=== PATIENT | female | born 1945 | race Caucasian/White ===

== ENCOUNTER 2017-01-17 14:43 | Outpatient (CLI) | payer MEDICARE, OTHER ==
[2017-01-17 13:08] LABS: BASOPHILS # (AUTO) 0.1 10^3/uL (0.0-0.1); BASOPHILS % (AUTO) 1.1 %; EOSINOPHILS # (AUTO) 0.2 10^3/uL (0.0-0.7); EOSINOPHILS % (AUTO) 4.1 %; HCT - HEMATOCRIT 41.4 % (37.0-47.0); HGB - HEMOGLOBIN 14.2 g/dL (12.0-16.0); LYMPHOCYTES # (AUTO) 1.4 10^3/uL (1.5-3.5); LYMPHOCYTES % (AUTO) 24.8 %; MEAN CORPUSCULAR HEMOGLOBIN 35.1 pg (27.0-31.0); MEAN CORPUSCULAR HGB CONC 34.3 g/dL (32.0-36.0); MEAN CORPUSCULAR VOLUME 102.2 fL (81.0-99.0); MEAN PLATELET VOLUME 9.7 fL (7.9-10.8); MONOCYTES # (AUTO) 0.8 10^3/uL (0.0-1.0); MONOCYTES % (AUTO) 14.5 %; NEUTROPHILS # (AUTO) 3.2 10^3/uL (1.5-6.6); NEUTROPHILS % (AUTO) 55.5 %; NUCLEATED RED BLOOD CELLS AUTO 0.1 /100WBC; RED BLOOD COUNT 4.05 10^6/uL (4.20-5.40); RED CELL DISTRIBUTION WIDTH 13.4 % (12.0-15.0); UNCORRECTED WHITE BLOOD COUNT 5.7 x10^3/uL; WHITE BLOOD COUNT 5.7 x10^3/uL (4.8-10.8)
[2017-01-17 13:40] LABS: ALBUMIN/GLOBULIN RATIO 1.4 (1.0-2.2); BILIRUBIN,TOTAL 0.5 mg/dL (0.2-1.0); BUN - BLOOD UREA NITROGEN 12 mg/dL (6-20); CARBON DIOXIDE - CO2 27 mmol/L (21-32); CHLORIDE 103 mmol/L (101-111); CHOL/HDL RATIO 2.7 (<4.4); CHOLESTEROL 133 mg/dL; CREATININE 0.7 mg/dL (0.4-1.0); GFR - MDRD 82 (>89); GLUCOSE 99 mg/dL (70-100); HDL CHOLESTEROL 50 mg/dL; LDL/HDL RATIO 1.3 (<4.4); POTASSIUM 3.9 mmol/L (3.5-5.0); SODIUM 135 mmol/L (135-145); TOTAL PROTEIN 7.1 g/dL (6.7-8.2); TRIGLYCERIDES 79 mg/dL; VLDL CHOLESTEROL 16 mg/dL
== END 2017-01-17 14:44 | disposition home or self-care (01) ==
LOC: LAB.WCP 14:43
PROVIDERS: ATTEND Family Medicine
DX: Z79.899 Other long term (current) drug therapy (principal); E78.9 Disorder of lipoprotein metabolism, unspecified; E03.9 Hypothyroidism, unspecified
CPT/HCPCS: 36415; 80053; 80061; 84443; 85025

== ENCOUNTER 2017-02-21 10:14 | Outpatient (CLI) | payer MEDICARE, OTHER ==
--- NOTE | 2017-02-22 14:30 | Mammography Report ---
DIGITAL SCREENING MAMMOGRAM: 02/21/2017 CLINICAL INDICATION: A 71-year-old, for screening. COMPARISON: 02/2016, 10/2014, 10/2013, 01/2013, 01/2011, 01/2010. TECHNIQUE: Routine CC and MLO projections were obtained of the breasts. FINDINGS: Parenchymal tissue within the breasts is predominantly fatty replaced. There are no domina nt masses, suspicious microcalcifications, or secondary signs of malignancy. In comparison to the pre vious studies, there are no significant changes. IMPRESSION: NO MAMMOGRAPHIC EVIDENCE OF MALIGNANCY. NO SIGNIFICANT INTERVAL CHANGES. RECOMMENDATION: Screening mammography is recommended annually. BIRADS category 1 - negative. STANDARD QUALIFYING STATEMENTS 1. This examination was reviewed with the aid of Computed-Aided Detection (CAD). 2. A negative or benign imaging report should not delay biopsy if clinically suspicious findings are present. Consider surgical consultation if warranted. More than 5% of cancers are not identified by i maging. 3. Dense breasts may obscure an underlying neoplasm. JOB #: [id number] EXT JOB #:[id number]
== END 2017-02-21 10:15 | disposition home or self-care (01) ==
LOC: DI 10:14
PROVIDERS: ATTEND Family Medicine
DX: Z12.31 Encounter for screening mammogram for malignant neoplasm of breast (principal)
CPT/HCPCS: 77067

== ENCOUNTER 2017-12-09 20:16 | Emergency (ER) | payer MEDICARE, OTHER ==
[2017-12-09 20:42] LABS: BASOPHILS # (AUTO) 0.1 10^3/uL (0.0-0.1); BASOPHILS % (AUTO) 1.1 %; EOSINOPHILS # (AUTO) 0.2 10^3/uL (0.0-0.7); EOSINOPHILS % (AUTO) 3.5 %; LYMPHOCYTES # (AUTO) 1.3 10^3/uL (1.5-3.5); LYMPHOCYTES % (AUTO) 24.3 %; MEAN CORPUSCULAR HEMOGLOBIN 35.9 pg (27.0-31.0); MEAN CORPUSCULAR HGB CONC 34.8 g/dL (32.0-36.0); MEAN CORPUSCULAR VOLUME 103.1 fL (81.0-99.0); MONOCYTES # (AUTO) 0.6 10^3/uL (0.0-1.0); MONOCYTES % (AUTO) 11.9 %; NEUTROPHILS # (AUTO) 3.2 10^3/uL (1.5-6.6); NEUTROPHILS % (AUTO) 59.2 %; PLT - PLATELET COUNT 212 10^3/uL (130-450); RED BLOOD COUNT 4.17 10^6/uL (4.20-5.40); RED CELL DISTRIBUTION WIDTH 13.8 % (12.0-15.0); WHITE BLOOD COUNT 5.3 x10^3/uL (4.8-10.8)
[2017-12-09] MEDS ORDERED: MAG HYDROX/AL HYDROX/SIMETH 30 ML UDC PO STA (20:44)
[2017-12-09] MEDS ORDERED: LIDOCAINE VISCOUS 2% 15 ML UDC MM STA (20:44)
[2017-12-09] MEDS ORDERED: LABETALOL 5 MG/1 ML 20 ML MDV IVP STA (20:48)
--- NOTE | 2017-12-09 20:50 | ED Physician Documentation ---
PD HPI CHEST PAIN - Stated complaint Stated Complaint: ABD PX/CP - Chief complaint Chief Complaint: Abd Pain - History obtained from History obtained from: Patient, Family - History of Present Illness Timing - onset: Today (72-year-old woman with history of indigestion and gastritis on EGD a couple of years ago presents with upper abdominal pain that started as a squeezing on both sides and then moved up into the chest and left shoulder and back over the course of the last few hours. There is no associated shortness of breath. Movement does not change the pain at all, but that she does have some back pain which is helped with repositioning. She denies pedal edema. She has no history of heart problems.) Review of Systems Ten Systems: 10 systems reviewed and negative Constitutional: denies: Fever, Chills Throat: denies: Dental pain / toothache, Sore throat Cardiac: denies: Palpitations, Pedal edema, Calf pain Respiratory: denies: Dyspnea PD PAST MEDICAL HISTORY - Past Medical History Past Medical History: Yes Endocrine/Autoimmune: HyPOthyroidism - Past Surgical History Past Surgical History: Yes /AUTO WASHER: Other - Present Medications Home Medications: Ambulatory Orders Medication Instructions Recorded Confirmed Ezetimibe/Simvastatin [Vytorin 1 tab PO DAILY 07/25/15 08/31/15 10-40 mg Tablet] Levothyroxine [Synthroid] 150 mcg PO DAILY 07/25/15 08/31/15 Raloxifene HCl 60 mg PO QPM 07/25/15 08/31/15 Loratadine [Claritin] 10 mg PO ONCE 08/28/15 08/31/15 Omeprazole [Prilosec] 20 mg PO DAILY 08/28/15 08/31/15 Omeprazole [PriLOSEC] 20 mg PO BID #60 capsule 12/09/17 Sucralfate 1 gm PO ACHS #120 tablet 12/09/17 - Allergies Allergies/Adverse Reactions: Allergies Allergy/AdvReac Type Severity Reaction Status Date / Time No Known Drug Allergies Allergy Verified 07/25/15 19:41 - Social History Does the pt smoke?: No Smoking Status: Former smoker - Family History Family history: reports: Non contributory PD ED PE NORMAL - Vitals Vital signs reviewed: Yes - General General: Alert and oriented X 3, No acute distress - HEENT HEENT: PERRL, EOMI - Neck Neck: Supple, no meningeal sign, No bony TTP - Cardiac Cardiac: RRR, No murmur - Respiratory Respiratory: No respiratory distress, Clear bilaterally - Abdomen Abdomen: Normal bowel sounds, Soft, Non tender - Back Back: No CVA TTP, No spinal TTP - Derm Derm: Normal color, Warm and dry - Extremities Extremities: No edema, No calf tenderness / cord - Neuro Neuro: Alert and oriented X 3, Normal speech - Psych Psych: Normal mood, Normal affect Results - Vitals Vitals: Vital Signs - 24 hr 12/09/17 12/09/17 12/09/17 20:22 20:56 21:01 Temperature 36.0 C L Heart Rate 80 83 85 Respiratory 16 20 20 Rate Blood Pressure 181/106 H 152/88 H 134/84 H O2 Saturation 98 97 97 12/09/17 12/09/17 21:34 22:37 Temperature Heart Rate 78 81 Respiratory 14 16 Rate Blood Pressure 140/98 H 127/86 H O2 Saturation 95 96 Oxygen O2 Source Room air - EKG (time done) 2024 Rate: Rate (enter#) (79) Rhythm: NSR (with 1 pvc) [place]: LAD Intervals: Prolonged [place] (230msec) QRS: Normal Ischemia: Normal ST segments Compare to prior EKG: Unchanged from prior EKG (from07/25/15) Computer interpretation: Agree with computer - Labs Labs: Laboratory Tests 12/09/17 12/09/17 12/09/17 20:37 20:37 20:37 WBC 5.3 RBC 4.17 L Hgb 15.0 Hct 43.0 MCV 103.1 H MCH 35.9 H MCHC 34.8 RDW 13.8 Plt Count 212 MPV 9.0 Neut # (Auto) 3.2 Lymph # (Auto) 1.3 L [place] # (Auto) 0.6 Eos # (Auto) 0.2 Baso # (Auto) 0.1 Absolute Nucleated RBC 0.00 Nucleated RBC % 0.1 Sodium 137 Potassium 3.5 Chloride 102 Carbon Dioxide 24 Anion Gap 11.0 BUN 14 Creatinine 0.6 Estimated GFR (MDRD) 98 Glucose 109 H Calcium 9.2 Total Bilirubin 0.7 AST 29 ALT 24 Alkaline Phosphatase 43 Troponin I < 0.04 Total Protein 7.6 Albumin 4.5 Globulin 3.1 Albumin/Globulin Ratio 1.5 Lipase 47 09/01/18 22:10 WBC RBC Hgb Hct MCV MCH MCHC RDW Plt Count MPV Neut # (Auto) Lymph # (Auto) [place] # (Auto) Eos # (Auto) Baso # (Auto) Absolute Nucleated RBC Nucleated RBC % Sodium Potassium Chloride Carbon Dioxide Anion Gap BUN Creatinine Estimated GFR (MDRD) Glucose Calcium Total Bilirubin AST ALT Alkaline Phosphatase Troponin I < 0.04 Total Protein Albumin Globulin Albumin/Globulin Ratio Lipase - Rads (name of study) CT Angio chest Radiology: EMP read contemporaneously (Tortuous aorta with athersclerosis and cornary calcifications. No dissection or PE.) PD MEDICAL DECISION MAKING - ED course ED course: 72-year-old woman with history of gastritis presents with chest pain radiating to the back. She did have significant relief with a GI cocktail. The combination with hypertension was concerning for dissection, and this was worked up with CT which demonstrated no dissection but she does have a very large hiatal hernia which is probably causative. Troponin 2 in the emergency department was negative. - Sepsis Event Vital Signs: Vital Signs - 24 hr 12/09/17 12/09/17 12/09/17 20:22 20:56 21:01 Temperature 36.0 C L Heart Rate 80 83 85 Respiratory 16 20 20 Rate Blood Pressure 181/106 H 152/88 H 134/84 H O2 Saturation 98 97 97 12/09/17 12/09/17 21:34 22:37 Temperature Heart Rate 78 81 Respiratory 14 16 Rate Blood Pressure 140/98 H 127/86 H O2 Saturation 95 96 Oxygen O2 Source Room air Departure - Departure Disposition: 01 Home, Self Care Clinical Impression: Hiatal hernia Chest pain Qualifiers: Chest pain type: unspecified Qualified Code(s): R07.9 - Chest pain, unspecified Condition: Good Record reviewed to determine appropriate education?: Yes Instructions: Hiatal Hernia, ED Chest Pain NonCardiac Follow-Up: Sebastian Cook MD [Provider Admit Priv/Credential] - Javier Braun MD [Provider Admit Priv/Credential] - Prescriptions: Omeprazole [PriLOSEC] 20 mg PO BID #60 capsule Sucralfate 1 gm PO ACHS #120 tablet Comments: Increase her Prilosec to twice a day. Take the sucralfate about half an hour before eating and again as discussed at least half an hour apart from other medications. Follow-up with a surgeon to discuss fundoplication. Discharge Date/Time: 12/09/17 22:41
[2017-12-09 20:55] LABS: ALBUMIN 4.5 g/dL (3.2-5.5); ALBUMIN/GLOBULIN RATIO 1.5 (1.0-2.2); BILIRUBIN,TOTAL 0.7 mg/dL (0.2-1.0); CALCIUM 9.2 mg/dL (8.5-10.3); CREATININE 0.6 mg/dL (0.4-1.0); TOTAL PROTEIN 7.6 g/dL (6.7-8.2)
--- NOTE | 2017-12-09 20:57 | XRAY Report ---
Reason: chest pain Procedure Date: 12/09/2017 Accession Number: [id number] / [id number] Procedure: XR - Chest 1 View X-Ray CPT Code: 47942 FULL RESULT: EXAM: CHEST RADIOGRAPHY EXAM DATE: 12/09/2017 08:50 PM. CLINICAL HISTORY: Chest pain. COMPARISON: CHEST 2 VIEW PA/LAT 07/25/2015. TECHNIQUE: 1 view. FINDINGS: Lungs/Pleura: No focal opacities evident. No pleural effusion. No pneumothorax. Mediastinum: There is a moderate to large retrocardiac gas filled structure consistent with a hiatal hernia. Heart size within normal limits. There is mild aortic tortuosity. Other: None. IMPRESSION: No change. Moderate to large hiatal hernia. RADIA
[2017-12-09] MEDS ORDERED: IOPAMIDOL-300 100 ML VIAL ONE (21:12)
[2017-12-09] MEDS ORDERED: IOPAMIDOL-300 100 ML VIAL IVP ONE (21:14)
[2017-12-09] MEDS ORDERED: PANTOPRAZOLE 40 MG VIAL IVP STA (21:53)
[2017-12-09] MEDS ORDERED: SUCRALFATE 1 GM/10 ML UDC PO STA (21:53)
--- NOTE | 2017-12-09 21:56 | CT Report ---
Reason: CP rad to back Procedure Date: 12/09/2017 Accession Number: [id number] / [id number] Procedure: CT - Chest Angio (AORTA) CPT Code: FULL RESULT: EXAM: CT ANGIOGRAM CHEST EXAM DATE: 12/09/2017 09:27 PM. CLINICAL HISTORY: Chest pain radiating to back. COMPARISON: None. TECHNIQUE: Routine helical imaging was performed through the chest in the arterial phase. IV contrast: Isovue 300 80 mL. Reconstructions: Coronal, sagittal, and 3D MIP reconstructions of the aorta. FINDINGS: Vascular Structures: Tortuous thoracic aorta. Mild calcified plaque seen throughout the aortic arch and descending aorta. There is no evidence of aneurysm or dissection. Diffuse coronary artery calcifications present. No pulmonary artery filling defects seen suggestive of acute embolism. Lungs/Pleura: There is centrilobular emphysema. No evidence of acute pulmonary air space disease. No nodules. No pleural effusion or pneumothorax. Mediastinum: Normal. No cardiac enlargement or adenopathy. Upper Abdomen: Large hiatal hernia. Other: None. IMPRESSION: 1. Tortuous, mildly atherosclerotic aorta without evidence of aneurysm or dissection. 2. No pulmonary embolism or acute airspace disease. 3. Emphysema. 4. Large hiatal hernia. 5. Coronary artery calcifications. RADIA
[2017-12-09 22:39] VITALS: BP 127/86
== END 2017-12-09 22:41 | disposition home or self-care (01) ==
LOC: ED 20:16
DX: K44.9 Diaphragmatic hernia without obstruction or gangrene (principal); R07.9 Chest pain, unspecified; E03.9 Hypothyroidism, unspecified; Z87.891 Personal history of nicotine dependence
CPT/HCPCS: 36415; 71045; 71275; 80053; 83690; 84484; 85025; 93005; 96374; 96375; 99283; 99284; A9270; Q9967

== ENCOUNTER 2018-04-24 09:16 | Outpatient (CLI) | payer MEDICARE, OTHER ==
[2018-04-24 14:06] LABS: BASOPHILS % (AUTO) 0.6 %; EOSINOPHILS # (AUTO) 0.3 10^3/uL (0.0-0.7); HGB - HEMOGLOBIN 14.6 g/dL (12.0-16.0); LYMPHOCYTES # (AUTO) 1.4 10^3/uL (1.5-3.5); LYMPHOCYTES % (AUTO) 26.3 %; MEAN CORPUSCULAR HEMOGLOBIN 35.5 pg (27.0-31.0); MEAN CORPUSCULAR HGB CONC 34.6 g/dL (32.0-36.0); MEAN CORPUSCULAR VOLUME 102.4 fL (81.0-99.0); MEAN PLATELET VOLUME 9.6 fL (7.9-10.8); MONOCYTES # (AUTO) 0.6 10^3/uL (0.0-1.0); MONOCYTES % (AUTO) 11.7 %; NEUTROPHILS % (AUTO) 56.4 %; PLT - PLATELET COUNT 215 10^3/uL (130-450); RED CELL DISTRIBUTION WIDTH 13.6 % (12.0-15.0); WHITE BLOOD COUNT 5.4 x10^3/uL (4.8-10.8)
[2018-04-24 14:20] LABS: ALBUMIN 4.2 g/dL (3.2-5.5); ALBUMIN/GLOBULIN RATIO 1.4 (1.0-2.2); ALKALINE PHOSPHATASE 55 IU/L (42-121); ALT ALANINE AMINOTRANSFERASE 23 IU/L (10-60); AST ASPARTATE AMINOTRANSFERASE 28 IU/L (10-42); BILIRUBIN,TOTAL 0.6 mg/dL (0.2-1.0); BUN - BLOOD UREA NITROGEN 12 mg/dL (6-20); CALCIUM 9.2 mg/dL (8.5-10.3); CARBON DIOXIDE - CO2 26 mmol/L (21-32); CHLORIDE 102 mmol/L (101-111); CHOL/HDL RATIO 2.1 (<4.4); CHOLESTEROL 134 mg/dL; CREATININE 0.6 mg/dL (0.4-1.0); GFR - MDRD 98 (>89); GLUCOSE 93 mg/dL (70-100); HDL CHOLESTEROL 63 mg/dL; LDL CHOLESTEROL,CALCULATED 57 mg/dL; LDL/HDL RATIO 0.9 (<4.4); SODIUM 135 mmol/L (135-145); TOTAL PROTEIN 7.2 g/dL (6.7-8.2); VLDL CHOLESTEROL 14 mg/dL
== END 2018-04-24 23:59 | disposition home or self-care (01) ==
LOC: LAB.WCP 09:16
PROVIDERS: ATTEND Family Medicine
DX: E78.5 Hyperlipidemia, unspecified (principal); Z79.899 Other long term (current) drug therapy; E03.9 Hypothyroidism, unspecified
CPT/HCPCS: 36415; 80053; 80061; 83721; 84443; 85025

== ENCOUNTER 2018-05-02 14:11 | Outpatient (CLI) | payer MEDICARE, OTHER ==
--- NOTE | 2018-05-03 08:28 | Mammography Report ---
Reason: SCREENING MAMMO Procedure Date: 05/02/2018 Accession Number: [id number] / [id number] Procedure: KIRIT - Screening Mammo w/Jd CPT Code: FULL RESULT: EXAM: Screening Mammo w/Jd DATE: 05/02/2018 3:15 PM CLINICAL HISTORY: Screening encounter. History of early menses and 10 year hormone therapy. TECHNIQUE: Bilateral CC and MLO views were obtained. COMPARISON: 02/21/2017 through 01/28/2013 FINDINGS: The breasts demonstrate diffuse fatty replacement bilaterally. No suspicious masses, clustered microcalcifications, or regions of architectural distortion are identified. IMPRESSION: Negative examination RECOMMENDATION: Routine annual screening unless otherwise clinically indicated. BIRADS CATEGORY 1: Negative STANDARD QUALIFYING STATEMENTS: 1. This examination was not reviewed with the aid of Computer-Aided Detection (CAD). 2. A negative or benign imaging report should not preclude biopsy if clinically suspicious findings are present. 3. Dense breasts may obscure an underlying neoplasm. 4. This examination was reviewed with the aid of 3D breast imaging (tomosynthesis).
== END 2018-05-02 14:12 | disposition home or self-care (01) ==
LOC: DI 14:11
DX: Z12.31 Encounter for screening mammogram for malignant neoplasm of breast (principal)
CPT/HCPCS: 77063; 77067

== ENCOUNTER 2019-05-22 09:08 | Outpatient (CLI) | payer MEDICARE, OTHER ==
[2019-05-22 12:10] LABS: BASOPHILS # (AUTO) 0.1 10^3/uL (0.0-0.1); BASOPHILS % (AUTO) 1.1 %; EOSINOPHILS # (AUTO) 0.4 10^3/uL (0.0-0.7); EOSINOPHILS % (AUTO) 6.7 %; HGB - HEMOGLOBIN 14.5 g/dL (12.0-16.0); LYMPHOCYTES # (AUTO) 1.3 10^3/uL (1.5-3.5); LYMPHOCYTES % (AUTO) 23.5 %; MEAN CORPUSCULAR HEMOGLOBIN 34.9 pg (27.0-31.0); MEAN CORPUSCULAR HGB CONC 32.7 g/dL (32.0-36.0); MEAN CORPUSCULAR VOLUME 106.7 fL (81.0-99.0); MEAN PLATELET VOLUME 11.7 fL (7.9-10.8); MONOCYTES # (AUTO) 0.8 10^3/uL (0.0-1.0); MONOCYTES % (AUTO) 15.3 %; NEUTROPHILS # (AUTO) 2.9 10^3/uL (1.5-6.6); NEUTROPHILS % (AUTO) 53.2 %; PLT - PLATELET COUNT 210 10^3/uL (130-450); RED BLOOD COUNT 4.16 10^6/uL (4.20-5.40); RED CELL DISTRIBUTION WIDTH 13.2 % (12.0-15.0); WHITE BLOOD COUNT 5.4 x10^3/uL (4.8-10.8)
[2019-05-22 12:32] LABS: ALBUMIN 4.2 g/dL (3.2-5.5); ALBUMIN/GLOBULIN RATIO 1.4 (1.0-2.2); ALKALINE PHOSPHATASE 48 IU/L (42-121); ALT ALANINE AMINOTRANSFERASE 19 IU/L (10-60); AST ASPARTATE AMINOTRANSFERASE 23 IU/L (10-42); BILIRUBIN,TOTAL 0.6 mg/dL (0.2-1.0); BUN - BLOOD UREA NITROGEN 17 mg/dL (6-20); CALCIUM 9.2 mg/dL (8.5-10.3); CARBON DIOXIDE - CO2 26 mmol/L (21-32); CHLORIDE 105 mmol/L (101-111); CHOL/HDL RATIO 2.4 (<4.4); CHOLESTEROL 126 mg/dL; CREATININE 0.7 mg/dL (0.4-1.0); GFR - MDRD 82 (>89); GLUCOSE 96 mg/dL (70-100); HDL CHOLESTEROL 53 mg/dL; LDL CHOLESTEROL,CALCULATED 53 mg/dL; SODIUM 139 mmol/L (135-145); TOTAL PROTEIN 7.1 g/dL (6.7-8.2); VLDL CHOLESTEROL 20 mg/dL
== END 2019-05-22 23:59 | disposition home or self-care (01) ==
LOC: LAB.WCP 09:08
PROVIDERS: ATTEND Family Medicine
DX: K21.9 Gastro-esophageal reflux disease without esophagitis (principal); E03.9 Hypothyroidism, unspecified; E78.5 Hyperlipidemia, unspecified
CPT/HCPCS: 36415; 80053; 80061; 83721; 84443; 85025

== ENCOUNTER 2019-05-28 10:25 | Outpatient (CLI) | payer MEDICARE, OTHER ==
--- NOTE | 2019-05-28 12:20 | XRAY Report ---
Reason: LEFT, RIGHT THUMB PAIN Procedure Date: 05/28/2019 Accession Number: [id number] / [id number] Procedure: WCP - Hand 3 View BILAT CPT Code: Final Report FULL RESULT: EXAMS: 1. Right Hand Radiography 2. Left Hand Radiography EXAM DATE: 05/28/2019 10:25 AM. CLINICAL HISTORY: Chronic bilateral thumb pain. The patient does not recall an episode of trauma. COMPARISON: None. TECHNIQUE: 3 views each hand. FINDINGS: Right: Bones: Decreased bone mineralization. No fracture. No focal bone lesion. Joints: Polyarticular joint space narrowing, greatest involving the distal interphalangeal joints of the second through fifth fingers, the interphalangeal joint of the right thumb and the right first metacarpophalangeal joint. No subluxation. Soft Tissues: Normal. No soft tissue swelling. Left: Bones: Decreased bone mineralization. No fracture or focal bone lesion. Joints: Joint space narrowing with subchondral sclerosis involving the left first carpometacarpal joint and the scaphotrapezial and scaphotrapezoid joints. There is joint space narrowing involving the interphalangeal joint of the left thumb and the distal interphalangeal joints of the left second through fifth fingers. There is valgus angulation at the left third finger distal interphalangeal joint. No other subluxation. Soft Tissues: Normal. No soft tissue swelling. IMPRESSION: 1. Bilateral polyarticular osteoarthritis, greatest in the bilateral metacarpophalangeal joints. 2. Valgus angulation at the left third finger distal interphalangeal joint, degenerative. 3. Decreased bone mineralization bilaterally. 4. No acute findings. RADIA
== END 2019-05-28 23:59 | disposition home or self-care (01) ==
LOC: DI.WCP 10:25
PROVIDERS: ATTEND Family Medicine
DX: M19.042 Primary osteoarthritis, left hand (principal); M19.041 Primary osteoarthritis, right hand; M18.12 Unilateral primary osteoarthritis of first carpometacarpal joint, left hand

== ENCOUNTER 2019-06-14 13:54 | Outpatient (CLI) | payer MEDICARE, OTHER ==
--- NOTE | 2019-06-17 09:00 | DEXA Report ---
Reason: BONE DISORDER Procedure Date: 06/14/2019 Accession Number: [id number] / [id number] Procedure: DEX - Dexa Spine and/or Hip CPT Code: Final Report FULL RESULT: EXAM: Dexa Spine and/or Hip DATE: 06/14/2019 2:27 PM CLINICAL HISTORY: BONE DISORDER TECHNIQUE: Dual energy x-ray absorptiometry (DXA) was performed on a [employer] System. Regions measured are the AP Spine, femoral neck, and if needed forearm. COMPARISON: 03/11/2016. In accordance with the International Society for Clinical Densitometry (ISCD) guidelines, data from previous exams may be reanalyzed using current recommendations and techniques. This is done to allow a more accurate basis for comparison with the current study. FINDINGS: The data for the lumbar spine is as follows: BMD (g/cm/cm) T-SCORE Z-SCORE REGION L1 0.762 -3.1 -1.4 L2 0.794 -3.4 -1.8 L3 0.823 -3.1 -1.5 L4 0.894 -2.5 -0.9 TOTAL 0.824 -3.0 -1.3 NOTE: All evaluable vertebrae are used for classification The data for the hip is as follows: BMD (g/cm/cm) T-SCORE Z-SCORE REGION Neck 0.703 -2.4 -0.6 TOTAL 0.703 -2.4 -0.8 NOTE: The femoral neck or total proximal femur, whichever is lowest, is used for classification. DXA RESULTS SUMMARY: Spine SCAN DATE [age]GE BMD CHANGE VS CHANGE VS PREVIOUS PREVIOUS % [birth year]14[birth year]2019 [age] 0[age]824 0.019 2.4 03/11/2016 [age] 0.805 * Denotes significant change at the 95% confidence level. Denotes dissimilar scan types or analysis methods. DXA RESULTS SUMMARY: Hip SCAN DATE AGE BMD CHANGE VS CHANGE VS PREVIOUS PREVIOUS % [birth year]14[birth year]2019 74.0 0[age]703 0.021 3.1 03[birth year]2016 [age] 0.682 * Denotes significant change at the 95% confidence level. Denotes dissimilar scan types or analysis methods. IMPRESSION: THE WHO CLASSIFICATION BASED ON THE INTERNATIONAL REFERENCE STANDARD IS OSTEOPOROSIS. THE FRACTURE RISK IS HIGH. RECOMMENDATION: Patients with diagnosis of osteoporosis or osteopenia should have regular bone mineral density assessment. For those eligible for Medicare, routine testing is allowed once every 2 years. Testing frequency can be increased for patients who have rapidly progressing disease or for those who are receiving medical therapy to restore bone mass. COMMENT: World Health Organization (WHO) definitions for osteoporosis and osteopenia: NORMAL BMD: T-score at -1.0 or higher, fracture risk is low OSTEOPENIA BMD: T-score between -1.0 and -2.5, fracture risk is increased. OSTEOPOROSIS BMD: T-score at -2.5 or lower, fracture risk is high. National Osteoporosis Foundation recommends: 1. Obtain adequate dietary calcium (at least 1200 mg per day) and vitamin D (400-800 international units per day). 2. Participate, as appropriate, in regular weightbearing and muscle-strengthening exercise. 3. Avoid tobacco use and reduce alcohol and caffeine intake. 4. For more detailed information see the website at www.NOF.org.
== END 2019-06-14 13:55 | disposition home or self-care (01) ==
LOC: DI 13:54
PROVIDERS: ATTEND Family Medicine
DX: M81.0 Age-related osteoporosis without current pathological fracture (principal)
CPT/HCPCS: 77080

== ENCOUNTER 2019-11-28 06:47 | Day surgery (SDC) | payer MEDICARE, OTHER ==
[2019-11-28] MEDS ORDERED: LACTATED RINGERS 1,000 ML IV ONE (07:29)
[2019-11-28] MEDS ORDERED: MIDAZOLAM 2 MG/2 ML VIAL IVP ONE (08:30)
[2019-11-28] MEDS ORDERED: fentaNYL 250 MCG/5 ML VIAL IVP ONE (08:30)
[2019-11-28 09:39] VITALS: BP 117/84
== END 2019-11-28 06:48 | disposition home or self-care (01) ==
LOC: SDS 06:47
PROVIDERS: ATTEND Surgery
DX: Z12.11 Encounter for screening for malignant neoplasm of colon (principal); K57.30 Diverticulosis of large intestine without perforation or abscess without bleeding; K64.8 Other hemorrhoids; Z87.891 Personal history of nicotine dependence
CPT/HCPCS: G0121; J3010; J7120

== ENCOUNTER 2020-05-04 15:01 | Emergency (ER) | payer MEDICARE, OTHER ==
[2020-05-04] MEDS ORDERED: HYDROcod/ACETAM 5/325 MG TABLET PO STA (15:13)
--- NOTE | 2020-05-04 15:17 | ED Physician Documentation ---
PD HPI BACK PAIN - Stated complaint Stated Complaint: LOW BACK PX - Chief complaint Chief Complaint: Back Pain - History obtained from History obtained from: Patient - Additional information Additional information: She slipped but did not fall 3 nights ago and since then has had severe right low back pain that is nonradiating especially when she twists or bends. It is not associated with saddle anesthesia, incontinence, weakness, numbness, tingling. No fevers. Review of Systems Constitutional: reports: Reviewed and negative Eyes: reports: Reviewed and negative Ears: reports: Reviewed and negative Nose: reports: Reviewed and negative Throat: reports: Reviewed and negative Cardiac: reports: Reviewed and negative PD PAST MEDICAL HISTORY - Past Medical History Cardiovascular: High cholesterol Respiratory: None Endocrine/Autoimmune: HyPOthyroidism GI: GERD HEENT: None Psych: Depression Musculoskeletal: Osteoarthritis Derm: Rosacea - Past Surgical History Past Surgical History: Yes Ortho: Other /AD TAKER: Other - Present Medications Home Medications: Ambulatory Orders Medication Instructions Recorded Confirmed Ezetimibe/Simvastatin [Vytorin 1 tab PO DAILY 07/25/15 05/04/20 10-40 mg Tablet] Levothyroxine [Synthroid] 150 mcg PO DAILY 07/25/15 05/04/20 Raloxifene HCl 60 mg PO QPM 07/25/15 05/04/20 Omeprazole [Prilosec] 20 mg PO DAILY 08/28/15 05/04/20 Fluticasone [Flonase] 1 sprays ELIAN DAILY 11/27/19 05/04/20 Sertraline [Zoloft] 25 mg ORAL DAILY 11/27/19 05/04/20 HYDROcod/ACETAM 5/325 [[place] 5/325] 1 - 2 tab PO Q6H PRN #15 tablet 05/04/20 - Allergies Allergies/Adverse Reactions: Allergies Allergy/AdvReac Type Severity Reaction Status Date / Time No Known Drug Allergies Allergy Verified 05/04/20 15:09 - Social History Does the pt smoke?: No Smoking Status: Former smoker Does the pt drink ETOH?: Yes Does the pt have substance abuse?: No - Immunizations Immunizations are current?: Yes PD ED PE NORMAL - Vitals Vital signs reviewed: Yes - General General: Alert and oriented X 3, No acute distress - Back Back: Other (Muscular tenderness of the right low back without midline spinal tenderness. She winces a bit with bending and twisting, gait is normal.) - Extremities Extremities: Other (The patient has equal and normal Achilles and patellar reflexes bilaterally. Normal sensation in all areas of the legs. Patient denies saddle anesthesia. Normal strength in flexion-extension at the ankles, knees, and flexion of the hips.) - Neuro Neuro: Alert and oriented X 3, Normal speech Results - Vitals Vitals: Vital Signs - 24 hr 05/04/20 15:07 Temperature 36.7 C Heart Rate 86 Respiratory 20 Rate Blood Pressure 155/109 H O2 Saturation 96 Oxygen O2 Source Room air PD MEDICAL DECISION MAKING - ED course ED course: Lumbar spine x-ray interpreted contemporaneously by me shows degenerative changes and grade 1 anterolisthesis at L3/L4 and L4/L5. This 74-year-old woman with an injury to the back without a fall. X-rays without acute trauma. Examination relatively unremarkable. She requested Vicodin by name. Departure - Departure Disposition: Home, Self Care Clinical Impression: Back pain Qualifiers: Back pain location: low back pain Chronicity: acute Back pain laterality: right Sciatica presence: without sciatica Qualified Code(s): M54.5 - Low back pain Condition: Good Record reviewed to determine appropriate education?: Yes Instructions: ED Low Back Pain Injury Prescriptions: HYDROcod/ACETAM 5/325 [[place] 5/325] 1 - 2 tab PO Q6H PRN #15 tablet PRN Reason: Pain Comments: Call your doctor to arrange a follow-up appointment, make the next available appointment. In the interim, return anytime if worse or if new symptoms develop. Do not drink or drive while taking narcotic pain medication. Note that many narcotic pain relievers also contain Tylenol/acetaminophen. P lease ensure that your total dose of acetaminophen from all sources does not exceed 3 g (3000 mg) per day. You may get constipated while on this medication. Take a stool softener such as Colace twice a day while you are on it. Also add an [id number] laxative such as senna or MiraLAX on any day that you do not have a bowel movement. If you received a narcotic pain medication or sedative while in the emergency department, do not drive for the next 24 hours.
--- NOTE | 2020-05-04 15:43 | XRAY Report ---
PROCEDURE: Lumbar Spine 2 View INDICATIONS: back inj TECHNIQUE: 3 views of the lumbar spine were acquired. COMPARISON: None. FINDINGS: Bones: 5 [id number] vertebrae are present. There is minimal anterolisthesis of L3 on L4 and gr darnell 1 anterolisthesis of L4 on L5. Degenerative endplate changes and bilateral facet arthrosis at L3- 4 through L5-S1 levels are seen. No vertebral body compression fractures. No suspicious bony lesion s. Soft tissues: Overlying bowel gas pattern is normal. Atherosclerotic calcifications throughout abdom inal aorta and bilateral iliac vessels are noted. IMPRESSION: No acute lumbar spine compression fracture. Grade 1 anterolisthesis at 34 and L4-5 level s as above. Degenerative disc disease throughout mid to lower lumbar spine. Reviewed by: Bj Shin MD on 05/04/2020 3:42 PM PST Approved by: Bj Shin MD on 05/04/2020 3:42 PM PST Station ID: [id number]
[2020-05-04 16:10] VITALS: BP 120/56
== END 2020-05-04 16:09 | disposition home or self-care (01) ==
LOC: ED 15:01
DX: M54.5 Low back pain (principal); X50.1XXA Overexertion from prolonged static or awkward postures, initial encounter; M51.36 Other intervertebral disc degeneration, lumbar region; Z87.891 Personal history of nicotine dependence
CPT/HCPCS: 72100; 99283; A9270

== ENCOUNTER 2020-06-03 08:30 | Outpatient (CLI) | payer MEDICARE, OTHER ==
[2020-06-03 08:44] LABS: BASOPHILS # (AUTO) 0.1 10^3/uL (0.0-0.1); BASOPHILS % (AUTO) 1.2 %; EOSINOPHILS # (AUTO) 0.5 10^3/uL (0.0-0.7); EOSINOPHILS % (AUTO) 7.4 %; HGB - HEMOGLOBIN 15.1 g/dL (12.0-16.0); LYMPHOCYTES # (AUTO) 1.5 10^3/uL (1.5-3.5); LYMPHOCYTES % (AUTO) 24.8 %; MEAN CORPUSCULAR HEMOGLOBIN 35.2 pg (27.0-31.0); MEAN CORPUSCULAR HGB CONC 33.3 g/dL (32.0-36.0); MEAN CORPUSCULAR VOLUME 105.8 fL (81.0-99.0); MEAN PLATELET VOLUME 10.5 fL (7.9-10.8); MONOCYTES # (AUTO) 0.8 10^3/uL (0.0-1.0); MONOCYTES % (AUTO) 13.9 %; NEUTROPHILS # (AUTO) 3.2 10^3/uL (1.5-6.6); NEUTROPHILS % (AUTO) 52.4 %; PLT - PLATELET COUNT 224 10^3/uL (130-450); RED BLOOD COUNT 4.29 10^6/uL (4.20-5.40); RED CELL DISTRIBUTION WIDTH 12.8 % (12.0-15.0); WHITE BLOOD COUNT 6.1 x10^3/uL (4.8-10.8)
[2020-06-03 09:03] LABS: ALBUMIN 4.4 g/dL (3.2-5.5); ALBUMIN/GLOBULIN RATIO 1.4 (1.0-2.2); ALKALINE PHOSPHATASE 50 IU/L (42-121); ALT ALANINE AMINOTRANSFERASE 23 IU/L (10-60); AST ASPARTATE AMINOTRANSFERASE 25 IU/L (10-42); BILIRUBIN,TOTAL 0.8 mg/dL (0.2-1.0); BUN - BLOOD UREA NITROGEN 19 mg/dL (6-20); CALCIUM 9.3 mg/dL (8.5-10.3); CARBON DIOXIDE - CO2 24 mmol/L (21-32); CHLORIDE 103 mmol/L (101-111); CHOL/HDL RATIO 2.6 (<4.4); CHOLESTEROL 142 mg/dL; CREATININE 0.7 mg/dL (0.4-1.0); GLUCOSE 96 mg/dL (70-100); HDL CHOLESTEROL 54 mg/dL; LDL CHOLESTEROL,CALCULATED 67 mg/dL; LDL/HDL RATIO 1.2 (<4.4); TOTAL PROTEIN 7.6 g/dL (6.7-8.2); VLDL CHOLESTEROL 21 mg/dL
[2020-06-03 10:04] LABS: FREE T4 (FREE THYROXINE) 1.33 ng/dL (0.58-1.64)
== END 2020-06-03 08:31 | disposition home or self-care (01) ==
LOC: LAB 08:30
PROVIDERS: ATTEND Family Medicine
DX: E78.5 Hyperlipidemia, unspecified (principal); E03.9 Hypothyroidism, unspecified; L71.9 Rosacea, unspecified; M89.9 Disorder of bone, unspecified
CPT/HCPCS: 36415; 80053; 80061; 83721; 84439; 84443; 85025

== ENCOUNTER 2021-01-27 10:27 | Outpatient (CLI) | payer MEDICARE, OTHER ==
[2021-01-27 17:59] LABS: BASOPHILS # (AUTO) 0.1 10^3/uL (0.0-0.1); BASOPHILS % (AUTO) 1.1 %; EOSINOPHILS # (AUTO) 0.5 10^3/uL (0.0-0.7); EOSINOPHILS % (AUTO) 7.4 %; HCT - HEMATOCRIT 44.5 % (37.0-47.0); HGB - HEMOGLOBIN 14.6 g/dL (12.0-16.0); LYMPHOCYTES # (AUTO) 1.6 10^3/uL (1.5-3.5); LYMPHOCYTES % (AUTO) 24.9 %; MEAN CORPUSCULAR HEMOGLOBIN 35.4 pg (27.0-31.0); MEAN CORPUSCULAR HGB CONC 32.8 g/dL (32.0-36.0); MEAN PLATELET VOLUME 11.8 fL (7.9-10.8); MONOCYTES # (AUTO) 0.8 10^3/uL (0.0-1.0); MONOCYTES % (AUTO) 12.2 %; NEUTROPHILS # (AUTO) 3.5 10^3/uL (1.5-6.6); NEUTROPHILS % (AUTO) 54.2 %; PLT - PLATELET COUNT 224 10^3/uL (130-450); RED BLOOD COUNT 4.12 10^6/uL (4.20-5.40); RED CELL DISTRIBUTION WIDTH 13.1 % (12.0-15.0); WHITE BLOOD COUNT 6.5 x10^3/uL (4.8-10.8)
[2021-01-27 18:57] LABS: ALBUMIN 4.6 g/dL (3.2-5.5); ALBUMIN/GLOBULIN RATIO 1.5 (1.0-2.2); ALKALINE PHOSPHATASE 46 IU/L (42-121); ALT ALANINE AMINOTRANSFERASE 23 IU/L (10-60); AST ASPARTATE AMINOTRANSFERASE 25 IU/L (10-42); BILIRUBIN,TOTAL 0.8 mg/dL (0.2-1.0); BUN - BLOOD UREA NITROGEN 19 mg/dL (6-20); CALCIUM 9.5 mg/dL (8.5-10.3); CARBON DIOXIDE - CO2 26 mmol/L (21-32); CHLORIDE 104 mmol/L (101-111); CK- CREATINE KINASE 60 IU/L (22-269); CREATININE 0.7 mg/dL (0.4-1.0); GFR - MDRD 82 (>89); GLUCOSE 92 mg/dL (70-100); POTASSIUM 4.2 mmol/L (3.5-5.0); SODIUM 139 mmol/L (135-145); TOTAL PROTEIN 7.6 g/dL (6.7-8.2)
[2021-01-27 19:21] LABS: CRP - C-REACTIVE PROTEIN < 1.0 mg/dL (0-1.0)
[2021-01-27 19:23] LABS: THYROID STIMULATING HORMONE 0.08 uIU/mL (0.34-5.60)
[2021-01-27 19:25] LABS: FREE T4 (FREE THYROXINE) 1.55 ng/dL (0.58-1.64)
== END 2021-01-27 23:59 | disposition home or self-care (01) ==
LOC: LAB.WCP 10:27
PROVIDERS: ATTEND Family Medicine
DX: M60.9 Myositis, unspecified (principal)
CPT/HCPCS: 36415; 80053; 82550; 84439; 84443; 85025; 85651; 86140

== ENCOUNTER 2021-03-11 08:35 | Day surgery (SDC) | payer MEDICARE, OTHER ==
[~2021-03-11 08:35] MED LIST: BRIMONIDINE 0.2% OPHTH DROPS 5 ML ONE; BSS/LIDOCAINE/EPINEPHRINE 1 ML SYRINGE ONE; CYCLOPENTOLATE 1% OPHTH DROPS 2 ML ONE; EPINEPHrine 1 MG/ML AMP ONE; KETOROLAC 0.45% OPHTH DROPS ONE; PHENYLEPHRINE 2.5% OPHTH 2 ML DROPS ONE; PROPARACAINE 0.5% OPHTH DROPS 15 ML ONE; TIMOLOL 0.5% OPHTH DROPS ONE; TRIAMCIN/MOXIFLOX OPHTHALMIC 0.6 ML VIAL IO ONE; VANCOMYCIN OPHTHALMI 8MG/0.8ML 8 MG/0.8 ML SYRINGE IO ONE
[2021-03-11] MEDS ORDERED: LACTATED RINGERS 1,000 ML IV ONE ×2 (09:10→10:04)
[2021-03-11] MEDS ORDERED: fentaNYL 100 MCG/2 ML VIAL ONE (09:34)
[2021-03-11] MEDS ORDERED: MIDAZOLAM 2 MG/2 ML VIAL ONE (09:34)
--- NOTE | 2021-03-11 09:37 | ANESTHESIA ---
Pre-Anesthesia VS, & Labs - Diagnosis senile combined cataract - Procedure cataract extraction with intraocular lens implant, right Vital Signs: Temp Pulse Resp BP Pulse Ox 36.1 C L 67 14 158/84 H 99 03/11/21 09:01 03/11/21 09:01 03/11/21 09:01 03/11/21 09:01 03/11/21 09:01 Height: 5 ft 3 in Weight (kg): 74.6 kg Body Mass Index: 29.1 BMI Classification: Overweight - NPO >8 hours - Is Patient ?: No Home Medications and Allergies Home Medications: Ambulatory Orders DULoxetine [Cymbalta] 30 mg PO DAILY 03/10/21 Levothyroxine [Synthroid] 150 mcg PO DAILY 07/25/15 Raloxifene HCl 60 mg PO QPM 07/25/15 Omeprazole [Prilosec] 20 mg PO DAILY 08/28/15 Fluticasone [Flonase] 1 sprays [place] DAILY 11/27/19 DULoxetine [Cymbalta] 30 mg PO DAILY 03/10/21 Allergies/Adverse Reactions: Allergies Allergy/AdvReac Type Severity Reaction Status Date / Time No Known Drug Allergies Allergy Verified 05/04/20 15:09 Anes History & Medical History - Anesthetic History Anesthesia Complications: reports: No previous complications - Medical History Cardiovascular: reports: None Pulmonary: reports: None Gastrointestinal: reports: GERD, Hiatal hernia, Other Urinary: reports: None Neuro: reports: None Musculoskeletal: reports: Osteoarthritis Endocrine/Autoimmune: reports: HyPOthyroidism Blood Disorders: reports: None Skin: reports: None Smoking Status: Former smoker History of Cancer?: No - Surgical History General: reports: Appendectomy, Colonoscopy Gynecologic: reports: Oophrectomy Orthopedic: reports: Other Exam General: Alert, Oriented x3, Cooperative Dental: WNL Mouth Opening: Greater than 4 Fingerbreadths Neck Mobility: Normal Mallampati classification: II Thyromental Distance: greater than 6 cm Respiratory: Lungs clear Cardiovascular: Regular rate, Normal S1, Normal S2 Plan Anesthesia Type: MAC Consent for Procedure(s) Verified and Reviewed: Yes Code Status: Attempt Resuscitation ASA classification: 2-Mild systemic disease Is this case an emergency?: No
[2021-03-11] MEDS ORDERED: EPINEPHrine 1 MG/ML AMP IR ONE (09:54)
[2021-03-11] MEDS ORDERED: BRIMONIDINE 0.2% OPHTH DROPS 5 ML OPTH ONE (09:54)
[2021-03-11] MEDS ORDERED: TIMOLOL 0.5% OPHTH DROPS OPTH ONE (09:55)
[2021-03-11] MEDS ORDERED: BSS/LIDOCAINE/EPINEPHRINE 1 ML SYRINGE IO ONE (09:55)
[2021-03-11] MEDS ORDERED: TRIAMCIN/MOXIFLOX OPHTHALMIC 0.6 ML VIAL IO ONE (09:55)
[2021-03-11] MEDS ORDERED: VANCOMYCIN OPHTHALMI 8MG/0.8ML 8 MG/0.8 ML SYRINGE IO ONE (09:55)
[2021-03-11] MEDS ORDERED: PROPARACAINE 0.5% OPHTH DROPS 15 ML EACHEYE ONE (09:55)
--- NOTE | 2021-03-11 10:14 | OPERATIVE REPORT ---
Operative Report - Other Other Information/Narrative: Date of Surgery: 03/11/21 Preop Dx: Visually significant cataract right eye. This was the first cataract surgery. Postop Dx: Same Procedure: Phacoemulsification with posterior chamber intraocular lens implant right eye Surgeon: Dr. Zac Keller Anesthesia: Monitored anesthesia care Complications: None Operative Indications: This is a 75-year-old F with progressive vision loss in the right eye due to 3+ nuclear sclerotic and vacuolar cataract. Best corrected visual acuity was 20/30 with glare to 20/50 vision in the right eye. Indications for surgery were: - Overall decrease in vision - Difficulty seeing words on a computer screen - Difficulty reading - Difficulty seeing street signs The patient was consented at length concerning the risks and benefits of cataract surgery after which the patient expressed a desire to proceed with surgery. Operative Procedure: The patient was taken into OR#3 and placed under monitored anesthesia care. A surgical time-out was conducted confirming correct patient, correct procedure, and correct surgical site. The patient was given topical anesthesia and then prepped and draped in the usual sterile fashion. The eye was entered at the 6 and 3 oclock positions. Intracameral Shugarcaine was injected into the anterior chamber followed by a dispersive viscoelastic. A continuous-tear curvilinear capsulorhexis was performed. The nucleus was hydrodissected and phacoemulsified. The cortex was evacuated using automated infusion and aspiration. A cohesive viscoelastic was injected into the capsular bag and a 15.5 diopter intraocular lens was inserted into the bag. Infusion and aspiration were used to evacuate the viscoelastic materials from the eye. The wounds were hydrated and the eye inflated to physiologic pressure using balanced salt solution. Approximately 0.25ml of a mixture of triamcinolone and moxifloxacin was injected trans-sclerally into the vitreous in the inferotemp oral quadrant using a 30 gauge cannula. An additional 0.55ml of a mixture of triamcinolone, moxifloxacin, and vancomycin was injected subconjunctivally in the superior quadrant for infection and inflammation prophylaxis. Wound integrity was checked with Weck-Lavern sponges. The patient was taken from the operating room in good condition and given post-op instructions.
[2021-03-11 10:15] VITALS: BP 129/91
--- NOTE | 2021-03-11 10:46 | ANESTHESIA POST OP EVALUATION ---
Anesthesia Post Eval - Post Anesthesia Eval Vitals: Last Vital Signs Temp 36.8 C 03/11/21 10:04 Pulse 69 03/11/21 10:13 Resp 17 03/11/21 10:13 BP 129/91 H 03/11/21 10:13 Pulse Ox 93 03/11/21 10:13 CV Function Including HR & BP: Stable Pain Control: Satisfactory Nausea & Vomiting: Negative Mental Status: Baseline Respiratory Status: Airway Patent Hydration Status: Satisfactory Anesthesia Complications: None
== END 2021-03-11 08:36 | disposition home or self-care (01) ==
LOC: SDS 08:35
PROVIDERS: ATTEND Ophthalmology
DX: H25.811 Combined forms of age-related cataract, right eye (principal); Z87.891 Personal history of nicotine dependence
CPT/HCPCS: 66984; A9270; J3490; J7120; V2787

== ENCOUNTER 2021-06-04 18:13 | Outpatient (CLI) | payer MEDICARE, OTHER | END 2021-06-04 23:59 | disposition short-term general hospital (02) | LOC: EMS 18:13 | DX: S00.31XA Abrasion of nose, initial encounter (principal); S49.92XA Unspecified injury of left shoulder and upper arm, initial encounter; W01.0XXA Fall on same level from slipping, tripping and stumbling without subsequent striking against object, initial encounter; Y93.01 Activity, walking, marching and hiking; Y92.511 Restaurant or cafe as the place of occurrence of the external cause | CPT/HCPCS: A0425; A0429 ==

== ENCOUNTER 2021-08-10 15:42 | Emergency (ER) | payer MEDICARE, OTHER ==
--- OUTSIDE RECORDS SUMMARY | 2021-08-10 16:02 | EXTERNAL MEDICAL SUMMARY RPT | Continuity of Care Document ---
:1945 Author Organization [facility] Address [address] [place] [address] Phone Care Team Providers Name Role Phone [place] Unavailable Unavailable Allergies No information. Encounters No information. Medications No information. Problems date description facility 20210605 Unspecified fracture of shaft of EVIIVO humerus, left arm, initial encounter for closed fracture 20210605 Other displaced fracture of lower end of XL Hybrids left humerus, initial encounter for closed fracture 20210605 Humerus Fx with nerve involvement s/p XL Hybrids Fall covid PCR negative 20210605 Fall XL Hybrids 20210605 B [id number] XL Hybrids Procedures date description facility 20210604 [facility] Results No information. Vital Signs date measurement value source 20210604 weight_standard 170 lb 20210604 weight_metric 77.11 kg 20210604 respiration_rate 22 /min 20210604 height_standard 63 in 20210604 height_metric 160.02 cm 20210604 BMI 30.1 kg/m2 20210605 heart_rate 79 /min 20210605 BP_systolic 170 mm[Hg] 20210605 BP_diastolic 91 mm[Hg]
[2021-08-10] MEDS ORDERED: ONDANSETRON ODT 4 MG TABLET TL STA (16:14)
--- NOTE | 2021-08-10 16:14 | ED Physician Documentation ---
History of Present Illness - Stated complaint Stated Complaint: WEAK,UNSTEADY - Chief complaint Chief Complaint: General - Additonal information Additional information: 76-year-old female comes to the emergency department for evaluation of general fatigue weakness dizziness and sore throat. She is most concerned she could have COVID. Fully vaccinated for COVID-19 as well is doubly boosted. No fevers, vomiting diarrhea or dysuria. She states she began feeling unsteady on her feet this morning and her felt she was also unsteady. No focal weakness slurred speech facial droop. Denies CP, SOB Past medical history is most significant for thyroid disease on Synthroid. Denies Hx of htn, dm. no COPD. former smoker. Review of Systems Constitutional: reports: Fatigue. denies: Fever, Chills, Myalgias Eyes: reports: Reviewed and negative Ears: reports: Reviewed and negative Nose: reports: Reviewed and negative Throat: reports: Sore throat Cardiac: reports: Reviewed and negative Respiratory: reports: Reviewed and negative GI: reports: Reviewed and negative : reports: Reviewed and negative PD PAST MEDICAL HISTORY - Past Medical History Cardiovascular: None Respiratory: None Neuro: None Endocrine/Autoimmune: HyPOthyroidism GI: GERD, Hiatal hernia, Other FASHION BUYER: None : None HEENT: Chronic vision loss Psych: Depression Musculoskeletal: Osteoarthritis Derm: None - Past Surgical History Past Surgical History: Yes General: Appendectomy, Colonoscopy Ortho: Other /FASHION BUYER: Oophrectomy - Present Medications Home Medications: Ambulatory Orders Medication Instructions Recorded Confirmed Levothyroxine [Synthroid] 150 mcg PO DAILY 07/25/15 08/10/21 Raloxifene HCl 60 mg PO QPM 07/25/15 08/10/21 Omeprazole [Prilosec] 20 mg PO DAILY 08/28/15 08/10/21 Fluticasone [Flonase] 1 sprays ELIAN DAILY 11/27/19 08/10/21 DULoxetine [Cymbalta] 30 mg PO DAILY 03/10/21 08/10/21 Ezetimibe/Simvastatin 1 tab PO DAILY 08/10/21 08/10/21 [Ezetimibe-Simvastatin 10-40 mg] - Allergies Allergies/Adverse Reactions: Allergies Allergy/AdvReac Type Severity Reaction Status Date / Time No Known Drug Allergies Allergy Verified 08/10/21 15:48 - Social History Does the pt smoke?: No Smoking Status: Never smoker Does the pt drink ETOH?: Yes Does the pt have substance abuse?: No - Immunizations Immunizations are current?: Yes PD ED PE NORMAL - General General: Alert and oriented X 3, No acute distress, Well developed/nourished - HEENT HEENT: Atraumatic - Neck Neck: Supple, no meningeal sign, No adenopathy, Thyroid normal - Cardiac Cardiac: RRR, No murmur, No gallop - Respiratory Respiratory: No respiratory distress, Clear bilaterally - Abdomen Abdomen: Normal bowel sounds, Soft - Rectal Rectal: Deferred - Back Back: No CVA TTP, No spinal TTP - Derm Derm: Normal color, Warm and dry, No rash - Extremities Extremities: No deformity, No tenderness to palpate, Normal ROM s pain - Neuro Neuro: Alert and oriented X 3, 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 Eye Opening: Spontaneous Motor: Obeys Commands Verbal: Oriented GCS Score: 15 Results - Vitals Vitals: Vital Signs - 24 hr 08/10/21 15:45 Temperature 36.7 C Heart Rate 107 H Respiratory 20 Rate Blood Pressure 151/83 H O2 Saturation 97 Oxygen O2 Source Room air - Labs Labs: Laboratory Tests 08/10/21 08/10/21 08/10/21 16:10 16:21 16:21 WBC 13.3 H RBC 4.28 Hgb 14.8 Hct 44.7 MCV 104.4 H MCH 34.6 H MCHC 33.1 RDW 13.5 Plt Count 230 MPV 10.7 Neut # (Auto) 10.8 H Lymph # (Auto) 1.0 L [place] # (Auto) 1.3 H Eos # (Auto) 0.1 Baso # (Auto) 0.1 Absolute Nucleated RBC 0.00 Nucleated RBC % 0.0 Sodium 133 L Potassium 3.9 Chloride 100 L Carbon Dioxide 21 Anion Gap 12.0 BUN 11 Creatinine 0.6 Estimated GFR (MDRD) 97 Glucose 119 H Calcium 9.3 Total Bilirubin 1.0 AST 21 ALT 17 Alkaline Phosphatase 58 Total Protein 7.8 Albumin 4.1 Globulin 3.7 Albumin/Globulin Ratio 1.1 Lipase 35 TSH Free T4 Urine Color YELLOW Urine Clarity CLEAR Urine pH 7.5 Ur Specific [place] 1.020 Urine Protein TRACE Urine Glucose (UA) NEGATIVE Urine Ketones 15 H Urine Occult Blood NEGATIVE Urine Nitrite NEGATIVE Urine Bilirubin NEGATIVE Urine Urobilinogen 0.2 (NORMAL) Ur Leukocyte Esterase NEGATIVE Ur Microscopic Review NOT INDICATED Urine Culture Comments NOT INDICATED SARS-CoV-2 (PCR) 08/10/21 08/10/21 16:21 16:25 WBC RBC Hgb Hct MCV MCH MCHC RDW Plt Count MPV Neut # (Auto) Lymph # (Auto) [place] # (Auto) Eos # (Auto) Baso # (Auto) Absolute Nucleated RBC Nucleated RBC % Sodium Potassium Chloride Carbon Dioxide Anion Gap BUN Creatinine Estimated GFR (MDRD) Glucose Calcium Total Bilirubin AST ALT Alkaline Phosphatase Total Protein Albumin Globulin Albumin/Globulin Ratio Lipase TSH 0.13 L Free T4 1.59 Urine Color Urine Clarity Urine pH Ur Specific [place] Urine Protein Urine Glucose (UA) Urine Ketones Urine Occult Blood Urine Nitrite Urine Bilirubin Urine Urobilinogen Ur Leukocyte Esterase Ur Microscopic Review Urine Culture Comments SARS-CoV-2 (PCR) NOT DETECTED - Rads (name of study) cxr Radiology: Final report received (mild cardiomegaly; moderate sized hiatial hernia) PD MEDICAL DECISION MAKING - ED course Complexity details: reviewed results, re-evaluated patient, considered differential, d/w patient ED course: 76-year-old female comes emergency department for feeling off balance out of sorts with a cough and sore throat. Symptoms began last night. Chest x-ray shows a tortuous aorta but no acute pulmonary infiltrate. Screening labs were completed and did not show any worrisome findings. There is a mild white blood cell count elevation but no significant electrolyte derangement. Urine is not consistent with infection. COVID-19 testing is negative. Patient is tolerating p.o.'s well. Denies chest pain or shortness of air. She feels comfortable discharge home. Discussed that if symptoms not improving, she develops chest pain or shortness of air or any other worrisome symptoms such as slurred speech facial droop or sudden weakness in arms or legs then she should return immediately to the ER for second evaluation. Departure - Departure Disposition: 01 Home, Self Care Clinical Impression: Nausea, Sore throat Condition: Stable Record reviewed to determine appropriate education?: Yes Comments: Marie your COVID-19 test is negative. Your chest x-ray does not show any findings of pneumonia. Your screening labs also do not show anything worrisome though your white blood cell count is very mildly elevated. However given there is no pneumonia on x-ray or findings of infection in the urine sometimes we can see this in patients were simply stressed or developing a viral illness. I encourage you stay well-hydrated at home drink plenty of fluids until your urine is pale yellow. If at any point you feel that your symptoms are worsening, you develop fevers, have chest pain, shortness of breath, slurred speech, facial droop or sudden weakness in your arms or legs please return immediately to the ER for second evaluation
[2021-08-10 16:27] LABS: BASOPHILS # (AUTO) 0.1 10^3/uL (0.0-0.1); BASOPHILS % (AUTO) 0.5 %; EOSINOPHILS # (AUTO) 0.1 10^3/uL (0.0-0.7); EOSINOPHILS % (AUTO) 0.9 %; HCT - HEMATOCRIT 44.7 % (37.0-47.0); HGB - HEMOGLOBIN 14.8 g/dL (12.0-16.0); LYMPHOCYTES % (AUTO) 7.4 %; MEAN CORPUSCULAR HEMOGLOBIN 34.6 pg (27.0-31.0); MEAN CORPUSCULAR HGB CONC 33.1 g/dL (32.0-36.0); MEAN CORPUSCULAR VOLUME 104.4 fL (81.0-99.0); MEAN PLATELET VOLUME 10.7 fL (7.9-10.8); MONOCYTES # (AUTO) 1.3 10^3/uL (0.0-1.0); MONOCYTES % (AUTO) 9.9 %; NEUTROPHILS # (AUTO) 10.8 10^3/uL (1.5-6.6); PLT - PLATELET COUNT 230 10^3/uL (130-450); RED BLOOD COUNT 4.28 10^6/uL (4.20-5.40); RED CELL DISTRIBUTION WIDTH 13.5 % (12.0-15.0); WHITE BLOOD COUNT 13.3 x10^3/uL (4.8-10.8)
[2021-08-10 16:29] LABS: BILIRUBIN,URINE NEGATIVE (NEGATIVE); CLARITY,URINE CLEAR (CLEAR); GLUCOSE, URINE (UA) NEGATIVE (NEGATIVE); KETONES,URINE (UA) 15 mg/dL (NEGATIVE); LEUKOCYTE ESTERASE, URINE NEGATIVE (NEGATIVE); NITRITE,URINE NEGATIVE (NEGATIVE); OCCULT BLOOD,URINE NEGATIVE (NEGATIVE); PH,URINE 7.5 PH (5.0-7.5); PROTEIN,URINE TRACE mg/dL (NEGATIVE); UROBILINOGEN,URINE 0.2 (NORMAL) E.U./dL (NORMAL)
[2021-08-10 16:41] LABS: ALBUMIN 4.1 g/dL (3.2-5.5); ALBUMIN/GLOBULIN RATIO 1.1 (1.0-2.2); CALCIUM 9.3 mg/dL (8.5-10.3); CREATININE 0.6 mg/dL (0.4-1.0); POTASSIUM 3.9 mmol/L (3.5-5.0); TOTAL PROTEIN 7.8 g/dL (6.7-8.2)
--- NOTE | 2021-08-10 16:41 | XRAY Report ---
PROCEDURE: Chest 1 View X-Ray INDICATIONS: Chest pain TECHNIQUE: One view of the chest was acquired. COMPARISON: 12/09/2017 FINDINGS: Surgical changes and devices: None. Lungs and pleura: No pleural effusions or pneumothorax. Lungs are clear. Mediastinum: Moderate sized hiatal hernia. Heart size is mildly enlarged as seen on the prior study. Bones and chest wall: No suspicious bony lesions. Overlying soft tissues appear unremarkable. IMPRESSION: Mild cardiomegaly. Moderate-sized hiatal hernia again noted. Reviewed by: Darvin Medina MD on 08/10/2021 4:39 PM PDT Approved by: Darvin Medina MD on 08/10/2021 4:39 PM PDT Station ID: [id number]
[2021-08-10 16:57] LABS: THYROID STIMULATING HORMONE 0.13 uIU/mL (0.34-5.60)
[2021-08-10 16:59] LABS: FREE T4 (FREE THYROXINE) 1.59 ng/dL (0.58-1.64)
[2021-08-10 17:38] VITALS: BP 148/85
== END 2021-08-10 17:38 | disposition home or self-care (01) ==
LOC: ED 15:42
DX: R11.0 Nausea (principal); R05.9 Cough, unspecified; J02.9 Acute pharyngitis, unspecified; Z20.822 Contact with and (suspected) exposure to COVID-19; Z87.891 Personal history of nicotine dependence
CPT/HCPCS: 36415; 71045; 80053; 81003; 83690; 84439; 84443; 85025; 87635; 99282; 99284; Q0162; 81001; 87086

== ENCOUNTER 2021-09-02 08:20 | Day surgery (SDC) | payer MEDICARE, OTHER ==
[~2021-09-02 08:20] MED LIST changes: -BRIMONIDINE 0.2% OPHTH DROPS 5 ML ONE; -BSS/LIDOCAINE/EPINEPHRINE 1 ML SYRINGE ONE; -EPINEPHrine 1 MG/ML AMP ONE; -TIMOLOL 0.5% OPHTH DROPS ONE; -TRIAMCIN/MOXIFLOX OPHTHALMIC 0.6 ML VIAL IO ONE; -VANCOMYCIN OPHTHALMI 8MG/0.8ML 8 MG/0.8 ML SYRINGE IO ONE
[2021-09-02] MEDS ORDERED: LACTATED RINGERS 1,000 ML IV ONE ×2 (08:50→10:35)
--- NOTE | 2021-09-02 10:01 | ANESTHESIA ---
Pre-Anesthesia VS, & Labs - Diagnosis left eye senile combined cataract - Procedure left eye cataract extraction with IOL implant Vital Signs: Temp Pulse Resp BP Pulse Ox 36.3 C L 85 18 160/96 H 97 09/02/21 08:40 09/02/21 08:40 09/02/21 08:40 09/02/21 08:40 09/02/21 08:40 Height: 5 ft 3 in Weight (kg): 71.9 kg Body Mass Index: 28.0 BMI Classification: Overweight - NPO >8 hours - Is Patient ?: No Home Medications and Allergies Levothyroxine [Synthroid] 150 mcg PO DAILY 07/25/15 Raloxifene HCl 60 mg PO QPM 07/25/15 Omeprazole [Prilosec] 20 mg PO DAILY 08/28/15 Fluticasone [Flonase] 1 sprays ELIAN DAILY 11/27/19 DULoxetine [Cymbalta] 30 mg PO DAILY 03/10/21 Ezetimibe/Simvastatin [Ezetimibe-Simvastatin 10-40 mg] 1 tab PO DAILY 08/10/21 Allergies/Adverse Reactions: Allergies Allergy/AdvReac Type Severity Reaction Status Date / Time No Known Drug Allergies Allergy Verified 08/10/21 15:48 Anes History & Medical History - Anesthetic History Anesthesia Complications: reports: No previous complications - Medical History Cardiovascular: reports: None Pulmonary: reports: None Gastrointestinal: reports: GERD, Hiatal hernia, Other Urinary: reports: None Neuro: reports: None Musculoskeletal: reports: Osteoarthritis Endocrine/Autoimmune: reports: HyPOthyroidism Blood Disorders: reports: None Skin: reports: None Smoking Status: Never smoker - Surgical History General: reports: Appendectomy, Colonoscopy Gynecologic: reports: Oophrectomy Orthopedic: reports: Other Exam General: Alert, Oriented x3, Cooperative, No acute distress Dental: WNL Mouth Openin Fingerbreadth Neck Mobility: Normal Mallampati classification: II Thyromental Distance: 4-6 cm Mental/Cognitive Status: Alert/Oriented X3, Normal for patient Plan Anesthesia Type: MAC Consent for Procedure(s) Verified and Reviewed: Yes Code Status: Attempt Resuscitation ASA classification: 2-Mild systemic disease Is this case an emergency?: No
[2021-09-02] MEDS ORDERED: MIDAZOLAM 2 MG/2 ML VIAL ONE (10:22)
[2021-09-02] MEDS ORDERED: BRIMONIDINE 0.2% OPHTH DROPS 5 ML OPTH ONE (10:26)
[2021-09-02] MEDS ORDERED: EPINEPHrine 1 MG/ML AMP IR ONE (10:26)
[2021-09-02] MEDS ORDERED: TIMOLOL 0.5% OPHTH DROPS OPTH ONE (10:26)
[2021-09-02] MEDS ORDERED: BSS/LIDOCAINE/EPINEPHRINE 1 ML SYRINGE IO ONE (10:27)
[2021-09-02] MEDS ORDERED: TRIAMCIN/MOXIFLOX OPHTHALMIC 0.6 ML VIAL IO ONE ×2 (10:27→11:23)
[2021-09-02] MEDS ORDERED: PROPARACAINE 0.5% OPHTH DROPS 15 ML EACHEYE ONE (10:27)
[2021-09-02] MEDS ORDERED: VANCOMYCIN OPHTHALMI 8MG/0.8ML 8 MG/0.8 ML SYRINGE IO ONE (10:28)
--- NOTE | 2021-09-02 10:41 | OPERATIVE REPORT ---
Operative Report - Other Other Information/Narrative: Date of Surgery: 09/02/21 Preop Dx: Visually significant cataract left eye. Cataract surgery was performed in the right eye on . Postop Dx: Same Procedure: Phacoemulsification with posterior chamber intraocular lens implant left eye Surgeon: Dr. Zac Keller Anesthesia: Monitored anesthesia care Complications: None Operative Indications: This is a 76-year-old F with progressive vision loss in the left eye due to 2-3+ nuclear sclerotic and vacuolar cataract. Best corrected visual acuity was 20/25 with glare to 20/50 vision in the left eye. Indications for surgery were: - Overall decrease in vision - Difficulty reading - Difficulty seeing words, closed captions, or game scores on TV - Difficulty seeing street signs The patient was consented at length concerning the risks and benefits of cataract surgery after which the patient expressed a desire to proceed with surgery. Operative Procedure: The patient was taken into OR#3 and placed under monitored anesthesia care. A surgical time-out was conducted confirming correct patient, correct procedure, and correct surgical site. The patient was given topical anesthesia and then prepped and draped in the usual sterile fashion. The eye was entered at the 6 and 3 oclock positions. Intracameral Shugarcaine was injected into the anterior chamber followed by a dispersive viscoelastic. A continuous-tear curvilinear capsulorhexis was performed. The nucleus was hydrodissected and phacoemulsified. The cortex was evacuated using automated infusion and aspiration. A cohesive viscoelastic was injected into the capsular bag and a 17.5 diopter intraocular lens was inserted into the bag. Infusion and aspiration were used to evacuate the viscoelastic materials from the eye. The wounds were hydrated and the eye inflated to physiologic pressure using balanced salt solution. Approximately 0.25ml of a mixture of triamcinolone and moxifloxacin was injected trans-sclerally into the vitreous in the inferotemporal quadrant using a 30 gauge cannula. An additional 0.55ml of a mixture of triamcinolone, moxifloxacin, and vancomycin was injected subconjunctivally in the superior quadrant for infection and inflammation prophylaxis. Wound integrity was checked with Weck-Lavern sponges. The patient was taken from the operating room in good condition and given post-op instructions.
[2021-09-02 10:55] VITALS: BP 162/76
--- NOTE | 2021-09-02 11:12 | ANESTHESIA POST OP EVALUATION ---
Anesthesia Post Eval - Post Anesthesia Eval Vitals: Last Vital Signs Temp 36.9 C 09/02/21 10:45 Pulse 87 09/02/21 10:45 Resp 16 09/02/21 10:45 BP 162/76 H 09/02/21 10:45 Pulse Ox 99 09/02/21 10:45 CV Function Including HR & BP: Stable Pain Control: Satisfactory Nausea & Vomiting: Negative Mental Status: Baseline Respiratory Status: Airway Patent Hydration Status: Satisfactory Anesthesia Complications: None
[2021-09-02] MEDS ORDERED: TIMOLOL 0.5% OPHTH DROPS ONE (11:23)
[2021-09-02] MEDS ORDERED: BSS/LIDOCAINE/EPINEPHRINE 1 ML VIAL ONE (11:23)
[2021-09-02] MEDS ORDERED: BRIMONIDINE 0.2% OPHTH DROPS 5 ML ONE (11:23)
[2021-09-02] MEDS ORDERED: EPINEPHrine 1 MG/ML AMP ONE (11:23)
== END 2021-09-02 08:21 | disposition home or self-care (01) ==
LOC: SDS 08:20
PROVIDERS: ATTEND Ophthalmology
DX: H25.812 Combined forms of age-related cataract, left eye (principal); Z98.41 Cataract extraction status, right eye
CPT/HCPCS: 66984; A9270; J3490; J7120

== ENCOUNTER 2022-02-14 09:25 | Outpatient (CLI) | payer MEDICARE, OTHER ==
[2022-02-14 12:18] LABS: BASOPHILS # (AUTO) 0.1 10^3/uL (0.0-0.1); BASOPHILS % (AUTO) 1.1 %; EOSINOPHILS # (AUTO) 0.4 10^3/uL (0.0-0.7); EOSINOPHILS % (AUTO) 6.1 %; HCT - HEMATOCRIT 44.6 % (37.0-47.0); HGB - HEMOGLOBIN 14.6 g/dL (12.0-16.0); LYMPHOCYTES # (AUTO) 1.8 10^3/uL (1.5-3.5); LYMPHOCYTES % (AUTO) 28.1 %; MEAN CORPUSCULAR HEMOGLOBIN 33.6 pg (27.0-31.0); MEAN CORPUSCULAR HGB CONC 32.7 g/dL (32.0-36.0); MEAN CORPUSCULAR VOLUME 102.8 fL (81.0-99.0); MEAN PLATELET VOLUME 11.9 fL (7.9-10.8); MONOCYTES # (AUTO) 0.9 10^3/uL (0.0-1.0); MONOCYTES % (AUTO) 13.2 %; NEUTROPHILS # (AUTO) 3.3 10^3/uL (1.5-6.6); NEUTROPHILS % (AUTO) 51.3 %; PLT - PLATELET COUNT 226 10^3/uL (130-450); RED BLOOD COUNT 4.34 10^6/uL (4.20-5.40); RED CELL DISTRIBUTION WIDTH 13.3 % (12.0-15.0); WHITE BLOOD COUNT 6.4 x10^3/uL (4.8-10.8)
[2022-02-14 13:06] LABS: ALBUMIN 4.4 g/dL (3.2-5.5); ALBUMIN/GLOBULIN RATIO 1.3 (1.0-2.2); ALKALINE PHOSPHATASE 53 IU/L (42-121); ALT ALANINE AMINOTRANSFERASE 19 IU/L (10-60); AST ASPARTATE AMINOTRANSFERASE 26 IU/L (10-42); BILIRUBIN,TOTAL 0.6 mg/dL (0.2-1.0); BUN - BLOOD UREA NITROGEN 17 mg/dL (6-20); CHOL/HDL RATIO 2.5 (<4.4); CHOLESTEROL 140 mg/dL; CREATININE 0.7 mg/dL (0.4-1.0); GFR - MDRD 81 (>89); HDL CHOLESTEROL 57 mg/dL; LDL CHOLESTEROL,CALCULATED 66 mg/dL; LDL/HDL RATIO 1.2 (<4.4); TOTAL PROTEIN 7.7 g/dL (6.7-8.2); TRIGLYCERIDES 87 mg/dL; VLDL CHOLESTEROL 17 mg/dL
[2022-02-14 13:17] LABS: CALCIUM 9.8 mg/dL (8.5-10.3); CARBON DIOXIDE - CO2 26 mmol/L (21-32); CHLORIDE 103 mmol/L (101-111); GLUCOSE 98 mg/dL (70-100); POTASSIUM 4.3 mmol/L (3.5-5.0); SODIUM 139 mmol/L (135-145)
[2022-02-14 14:48] LABS: THYROID STIMULATING HORMONE 0.05 uIU/mL (0.34-5.60)
[2022-02-14 15:21] LABS: FREE T4 (FREE THYROXINE) 1.95 ng/dL (0.58-1.64)
== END 2022-02-14 09:26 | disposition home or self-care (01) ==
LOC: LAB.N 09:25
PROVIDERS: ATTEND Nurse Practitioner Family
DX: E78.5 Hyperlipidemia, unspecified (principal); D53.9 Nutritional anemia, unspecified; E03.9 Hypothyroidism, unspecified; Z79.899 Other long term (current) drug therapy; Z91.89 Other specified personal risk factors, not elsewhere classified
CPT/HCPCS: 36415; 80053; 80061; 82607; 82746; 83721; 84439; 84443; 85025

== ENCOUNTER 2022-03-14 08:11 | Outpatient (CLI) | payer MEDICARE, OTHER ==
--- NOTE | 2022-03-14 16:41 | DEXA Report ---
PROCEDURE: Dexa Spine and/or Hip INDICATIONS: POST MENOPAUSAL TECHNIQUE: Dual energy x-ray absorptiometry (DXA) was performed on a Xenon Arc System. Regions measur ed are the AP Spine, femoral neck, and if needed forearm. COMPARISON: 06/14/2019. FINDINGS: Lumbar Spine: Bone Mineral Density 0.893 g/cm/cm,T score -2.4. There is interval a 0.4% increase in total lumbar spine bone mineral density Left Femoral Neck: Bone Mineral Density 0.643 g/cm/cm, T score -2.8. Left Hip: Bone Mineral Density 0.686 g/cm/cm,T score -2.6. There is interval 2.4% decrease in left total hip b one mineral density. (T score greater or equal to -1.0: NORMAL) (T score from -1.1 to -2.4: OSTEOPENIA) (T score less than or equal to -2.5 to: OSTEOPOROSIS) Impression: Osteoporosis. Patients with diagnosis of osteoporosis or osteopenia should have regular bone mineral density assess ment. For those eligible for Medicare, routine testing is allowed once every 2 years. Testing frequ ency can be increased for patients who have rapidly progressing disease or for those who are receivin g medical therapy to restore bone mass. Reviewed by: Bj Shin MD on 03/14/2022 4:40 PM PST Approved by: Bj Shin MD on 03/14/2022 4:40 PM PST Station ID: [id number]
== END 2022-03-14 08:12 | disposition home or self-care (01) ==
LOC: DI 08:11
PROVIDERS: ATTEND Nurse Practitioner Family
DX: M81.0 Age-related osteoporosis without current pathological fracture (principal); Z78.0 Asymptomatic menopausal state

== ENCOUNTER 2022-04-12 11:47 | Outpatient (CLI) | payer MEDICARE, OTHER ==
[2022-04-12 12:25] LABS: THYROID STIMULATING HORMONE 0.14 uIU/mL (0.34-5.60)
[2022-04-12 13:50] LABS: FREE T4 (FREE THYROXINE) 1.48 ng/dL (0.58-1.64)
== END 2022-04-12 11:48 | disposition home or self-care (01) ==
LOC: LAB 11:47
PROVIDERS: ATTEND Nurse Practitioner Family
DX: E03.9 Hypothyroidism, unspecified (principal)
CPT/HCPCS: 36415; 84439; 84443

== ENCOUNTER 2022-12-14 12:35 | Outpatient (CLI) | payer MEDICARE, OTHER ==
[2022-12-14 12:53] LABS: BASOPHILS # (AUTO) 0.1 10^3/uL (0.0-0.1); BASOPHILS % (AUTO) 0.8 %; EOSINOPHILS # (AUTO) 0.2 10^3/uL (0.0-0.7); EOSINOPHILS % (AUTO) 2.3 %; LYMPHOCYTES # (AUTO) 1.8 10^3/uL (1.5-3.5); LYMPHOCYTES % (AUTO) 23.3 %; MEAN CORPUSCULAR HEMOGLOBIN 35.6 pg (27.0-31.0); MEAN CORPUSCULAR HGB CONC 33.3 g/dL (32.0-36.0); MEAN CORPUSCULAR VOLUME 106.9 fL (81.0-99.0); MEAN PLATELET VOLUME 10.3 fL (7.9-10.8); MONOCYTES % (AUTO) 12.7 %; NEUTROPHILS # (AUTO) 4.7 10^3/uL (1.5-6.6); NEUTROPHILS % (AUTO) 60.6 %; PLT - PLATELET COUNT 241 10^3/uL (130-450); RED BLOOD COUNT 4.21 10^6/uL (4.20-5.40); WHITE BLOOD COUNT 7.8 x10^3/uL (4.8-10.8)
[2022-12-14 13:06] LABS: ALBUMIN 4.7 g/dL (3.2-5.5); ALBUMIN/GLOBULIN RATIO 1.6 (1.0-2.2); ALKALINE PHOSPHATASE 47 IU/L (42-121); ALT ALANINE AMINOTRANSFERASE 18 IU/L (10-60); AST ASPARTATE AMINOTRANSFERASE 22 IU/L (10-42); BILIRUBIN,TOTAL 0.6 mg/dL (0.2-1.0); BUN - BLOOD UREA NITROGEN 15 mg/dL (6-20); CALCIUM 10.2 mg/dL (8.5-10.3); CARBON DIOXIDE - CO2 29 mmol/L (21-32); CHLORIDE 103 mmol/L (101-111); CHOLESTEROL 122 mg/dL; CREATININE 0.8 mg/dL (0.6-1.3); GFR - MDRD 70 (>89); GLUCOSE 83 mg/dL (74-104); HDL CHOLESTEROL 60 mg/dL; LDL CHOLESTEROL,CALCULATED 40 mg/dL; LDL/HDL RATIO 0.7 (<4.4); POTASSIUM 4.1 mmol/L (3.5-4.5); SODIUM 138 mmol/L (135-145); TOTAL PROTEIN 7.6 g/dL (6.4-8.9); TRIGLYCERIDES 109 mg/dL (48-352); VLDL CHOLESTEROL 22 mg/dL
== END 2022-12-14 12:36 | disposition home or self-care (01) ==
LOC: LAB 12:35
PROVIDERS: ATTEND Nurse Practitioner Family
DX: I10 Essential (primary) hypertension (principal); E03.9 Hypothyroidism, unspecified; E78.5 Hyperlipidemia, unspecified
CPT/HCPCS: 36415; 80053; 80061; 83721; 84443; 85025

== ENCOUNTER 2023-07-14 12:40 | Outpatient (CLI) | payer MEDICARE, OTHER ==
[2023-07-14 12:53] LABS: ABSOLUTE RETICS # AUTO 0.081 10^6/uL (0.020-0.110); HGB - HEMOGLOBIN 15.1 g/dL (12.0-16.0); MEAN CORPUSCULAR HEMOGLOBIN 34.2 pg (27.0-31.0); MEAN CORPUSCULAR HGB CONC 31.5 g/dL (32.0-36.0); MEAN CORPUSCULAR VOLUME 108.8 fL (81.0-99.0); MEAN PLATELET VOLUME 10.9 fL (7.9-10.8); RED BLOOD COUNT 4.41 10^6/uL (4.20-5.40); RED CELL DISTRIBUTION WIDTH 13.5 % (12.0-15.0); RETICULOCYTE COUNT % (AUTO) 1.83 % (0.5-2.3); WHITE BLOOD COUNT 7.2 x10^3/uL (4.8-10.8)
== END 2023-07-14 12:41 | disposition home or self-care (01) ==
LOC: LAB 12:40
PROVIDERS: ATTEND Nurse Practitioner Family
DX: D53.9 Nutritional anemia, unspecified (principal)
CPT/HCPCS: 36415; 82607; 82746; 85027; 85045

== ENCOUNTER 2023-11-01 11:45 | Outpatient (CLI) | payer MEDICARE, OTHER ==
--- NOTE | 2023-11-01 15:30 | XRAY Report ---
PROCEDURE: Knee 3V RT INDICATIONS: STRAIN OF POSTERIOR MUSCLE GROUP LOWER LEG TECHNIQUE: 3 views of the knee(s) were acquired. COMPARISON: None. FINDINGS: Bones: There is prior internal fixation of proximal tibia with surgical hardware in place. No gross hardware loosening or failure. No acute right knee fracture or dislocation. Moderate tricompartmental osteoarthritis is seen. No significant patellar subluxation. No suspicious bony lesions. Soft tissues: Moderate to large knee joint effusion. No suspicious soft tissue calcifications or mas ses. IMPRESSION: No acute right knee fracture or dislocation. Prior internal fixation of proximal tibia. No gross hard connor loosening or failure. Moderate tricompartmental osteoarthritis. Moderate to large suprapatellar joint effusion. Reviewed by: Bj Shin MD on 11/01/2023 3:29 PM PDT Approved by: Bj Shin MD on 11/01/2023 3:29 PM PDT Station ID: [id number]
== END 2023-11-01 23:59 | disposition home or self-care (01) ==
LOC: DI.N 11:45
PROVIDERS: ATTEND Physician Assistant
DX: S86.111A Strain of other muscle(s) and tendon(s) of posterior muscle group at lower leg level, right leg, initial encounter (principal); M17.11 Unilateral primary osteoarthritis, right knee; M25.461 Effusion, right knee; Z96.89 Presence of other specified functional implants